=== PATIENT | male | born 1950 | race Caucasian/White ===

== ENCOUNTER 2016-10-30 07:32 | Emergency (ER) | payer MEDICARE ==
[~2016-10-30] VITALS: Ht 170.2 cm; Wt 90.7 kg
[2016-10-30] MEDS ORDERED: ASPIRIN 325 MG TABLET PO ONE (08:00)
[2016-10-30] MEDS ORDERED: NITROGLYCERIN PACKET 1 GM PACKET TD ONE (08:00)
[2016-10-30] MEDS ORDERED: ASPIRIN 325 MG TABLET ONE (08:01)
[2016-10-30] MEDS ORDERED: NITROGLYCERIN PACKET 1 GM PACKET ONE (08:02)
[2016-10-30 08:08] LABS: BASOPHILS # (AUTO) 0.1 /CMM (0.0-0.2); DIFF TOTAL % 100 %; EOSINOPHILS # (AUTO) 0.2 /CMM (0.0-0.7); EOSINOPHILS % (AUTO) 3.3 % (0.0-6.0); HEMATOCRIT 44 % (39-51); LYMPHOCYTES # (AUTO) 1.8 /CMM (0.8-4.8); LYMPHOCYTES % (AUTO) 32.4 % (20.0-44.0); MEAN CORPUSCULAR HEMOGLOBIN 30 PG (26.0-33.0); MEAN CORPUSCULAR HGB CONC 34 g/dl (31.0-36.0); MEAN CORPUSCULAR VOLUME 88 fL (80-96); MONOCYTES # (AUTO) 0.5 /CMM (0.1-1.30); MONOCYTES % (AUTO) 8.8 % (2.0-12.0); NEUTROPHILS % (AUTO) 54.5 % (43.0-81.0); PLATELET COUNT (AUTO) 245 /CMM (150-450); RED BLOOD CELL COUNT(AUTO) 4.99 MIL/uL (4.5-6.0); WHITE BLOOD COUNT (AUTO) 5.5 K/uL (4.3-11.0)
[2016-10-30 08:17] LABS: CALCIUM, SERUM 9.6 mg/dL (8.5-10.1); POTASSIUM 3.4 mmol/L (3.5-5.1)
[2016-10-30 08:22] LABS: ALBUMIN 3.6 g/dL (3.4-5.0); BILIRUBIN,DIRECT 0.1 mg/dL (0.0-0.2); BILIRUBIN,TOTAL 0.3 mg/dL (0.2-1.0); INDIRECT BILIRUBIN 0.2 mg/dL (0.0-1.1); TOTAL PROTEIN, SERUM 7.6 g/dL (6.4-8.2)
[2016-10-30 08:23] LABS: INR 0.94 (0.87-1.13); PROTHROMBIN TIME 10.2 SECS (9.5-12.7)
[2016-10-30 08:25] LABS: TROPONIN I 0.024 ng/mL (0.00-0.056)
[2016-10-30] MEDS ORDERED: LISI10TA5 PO (08:52)
[2016-10-30] MEDS ORDERED: AMLO10TA2 PO (08:52)
[2016-10-30] MEDS ORDERED: HYDR12.5 PO (08:52)
[2016-10-30] MEDS ORDERED: AMOX1TAB15 PO (08:52)
[2016-10-30] MEDS ORDERED: TAMS0.4C34 PO (08:52)
[2016-10-30] MEDS ORDERED: CHOL100044 PO (08:52)
[2016-10-30 10:33] VITALS: BP 126/81
== END 2016-10-30 10:38 | disposition short-term general hospital (02) ==
LOC: ER 07:36
DX: R07.9 Chest pain, unspecified (principal); I10 Essential (primary) hypertension
CPT/HCPCS: 36415; 71010; 80048; 80076; 84484; 85025; 85730; 93005; 99285; A4606; Z7610